=== PATIENT | male | born 1960 | race African-American/Black ===

== ENCOUNTER 2017-06-16 01:16 | Emergency (ER) | payer BC ==
[~2017-06-16] VITALS: Ht 177.8 cm; Wt 136.0 kg
[2017-06-16 06:30] VITALS: BP 135/85
[2017-06-16] MEDS ORDERED: ACETAMINOPHEN 500MG TABLET PO ONE (06:30)
== END 2017-06-16 06:55 | disposition home or self-care (01) ==
LOC: ER 01:56
DX: H66.92 Otitis media, unspecified, left ear (principal); J02.9 Acute pharyngitis, unspecified; R09.81 Nasal congestion; I10 Essential (primary) hypertension; E78.00 Pure hypercholesterolemia, unspecified; E11.9 Type 2 diabetes mellitus without complications
CPT/HCPCS: 82962; 99283; Z7610